=== PATIENT | female | born 1990 | race Caucasian/White ===

== ENCOUNTER 2017-05-22 18:28 | Emergency (ER) | payer OTHER, BC ==
[2017-05-22] MEDS: OXYCODONE/APAP 5MG/325MG(BULK FOR ED) 1 TABLET PO (19:45)
[2017-05-22] MEDS: CLINDAMYCIN 150 MG CAP PO (20:03)
== END 2017-05-22 20:09 | disposition home or self-care (01) ==
LOC: M ED 18:28
DX: K08.89 Other specified disorders of teeth and supporting structures (principal); Z79.3 Long term (current) use of hormonal contraceptives
CPT/HCPCS: 99283

== ENCOUNTER → 2018-12-14 | Outpatient (REF) | payer OTHER ==
[~2018-12-14] MED LIST: ALEV220T26 PO; CLIN150C14 PO; [UNRECOGNIZED DRUG - REMARK] PO
== END ==
LOC: M LAB REF 12:27
PROVIDERS: ATTEND Nurse Practitioner Family
DX: R30.0 Dysuria (principal)

== ENCOUNTER → 2021-01-07 | Outpatient (REF) | payer OTHER ==
[~2021-01-07] MED LIST changes: -CLIN150C14 PO; +CLIN150C17 PO
== END ==
LOC: M LAB REF 16:21
PROVIDERS: ATTEND Surgery
DX: L72.11 Pilar cyst (principal)

== ENCOUNTER → 2021-09-30 | Outpatient (REF) | payer OTHER | LOC: M SFHCDERM 12:47 | PROVIDERS: ATTEND Nurse Practitioner Family | DX: I78.1 Nevus, non-neoplastic (principal) ==

== ENCOUNTER → 2021-12-20 | Outpatient (REF) | payer OTHER | LOC: M LAB REF 08:25 | PROVIDERS: ATTEND Physician Assistant | DX: N39.0 Urinary tract infection, site not specified (principal) ==

== ENCOUNTER → 2022-11-19 | Outpatient (CLI) | payer BC ==
[~2022-11-19] MED LIST changes: +CIPR-249 PO; +METR-265 PO; +PROM25TA12 PO
== END ==
LOC: M WHC 13:57
PROVIDERS: ATTEND Nurse Practitioner Family
DX: R10.2 Pelvic and perineal pain (principal)

== ENCOUNTER → 2024-11-30 | Outpatient (CLI) | payer OTHER ==
[2024-11-30 15:06] LABS: PLATELET COUNT, AUTOMATED 345 10^3/uL (150-450)
[2024-11-30 15:40] LABS: HIV 1&2 SCREEN NEGATIVE (NEGATIVE)
[2024-11-30 16:10] LABS: Trichomonas vaginalis (AMP) NOT DETECTED (NEGATIVE)
[2024-11-30 16:34] LABS: GC DNA AMPLIFICATION NEGATIVE (NEGATIVE)
[2024-11-30 16:41] LABS: HEPATITIS C VIRUS ABY INDEX 0.11 INDEX (<0.8)
== END ==
LOC: M PLALAB 12:49
PROVIDERS: ATTEND Student in an Organized Health Care Education/Training Program
DX: Z34.80 Encounter for supervision of other normal pregnancy, unspecified trimester (principal)

== ENCOUNTER → 2024-12-19 | Outpatient (CLI) | payer OTHER | LOC: M PLALAB 16:54 | PROVIDERS: ATTEND Student in an Organized Health Care Education/Training Program | DX: Z34.82 Encounter for supervision of other normal pregnancy, second trimester (principal) ==

== ENCOUNTER → 2025-01-04 | Outpatient (CLI) | payer OTHER ==
[2025-01-04 15:50] LABS: PLATELET COUNT, AUTOMATED 329 10^3/uL (150-450)
[2025-01-04 15:53] LABS: LDH LACTATE DEHYDROGENASE 143 U/L (120-246)
[2025-01-04 15:54] LABS: ALT/SGPT 20 U/L (7.0-40); AST/SGOT 15 U/L (<34); CREATININE FOR GFR 0.54 MG/DL (0.55-1.30); GLOMERULAR FILTRATION RATE > 90.0 (>60)
== END ==
LOC: M PLALAB 12:51
PROVIDERS: ATTEND Student in an Organized Health Care Education/Training Program
DX: O10.012 Pre-existing essential hypertension complicating pregnancy, second trimester (principal); Z3A.00 Weeks of gestation of pregnancy not specified

== ENCOUNTER → 2025-01-16 | Outpatient (REF) | payer OTHER ==
[2025-01-16 11:03] LABS: TOTAL PROTEIN,RANDOM URINE 14.0 MG/DL (0.0-14.0)
== END ==
LOC: M PLALAB 08:03
PROVIDERS: ATTEND Student in an Organized Health Care Education/Training Program
DX: O10.012 Pre-existing essential hypertension complicating pregnancy, second trimester (principal); Z3A.00 Weeks of gestation of pregnancy not specified

== ENCOUNTER → 2025-02-12 | Outpatient (CLI) | payer OTHER | LOC: M WHC 15:31 | PROVIDERS: ATTEND Student in an Organized Health Care Education/Training Program | DX: Z34.82 Encounter for supervision of other normal pregnancy, second trimester (principal) ==